=== PATIENT | female | born 1980 | race Caucasian/White ===

== ENCOUNTER 2020-01-10 23:49 | Emergency (ER) | payer MEDICAID ==
[~2020-01-10] VITALS: Ht 154.9 cm; Wt 69.1 kg
[2020-01-11] MEDS ORDERED: diphenhydrAMINE 50 mg/ml inj IV ONE (00:25)
[2020-01-11] MEDS ORDERED: metoclopramide 5 mg/ml inj IV ONE (00:25)
[2020-01-11] MEDS ORDERED: glycopyrrolate 0.2mg/ml inj IV ONE (00:25)
[2020-01-11] MEDS ORDERED: normal saline 1000ML IV soln IVB ONE ×2 (00:25)
[2020-01-11 00:45] LABS: URINE HCG NEGATIVE (NEG)
[2020-01-11 00:58] LABS: ALANINE AMINOTRANSFERASE 43 U/L (12-78); ALBUMIN 4.2 G/DL (3.4-5.0); ALBUMIN/GLOBULIN RATIO 1.1 (1.1-1.5); ALKALINE PHOSPHATASE 74 IU/L (46-116); ANION GAP 7 (8-16); ASPARTATE AMINO TRANSFERASE 27 U/L (10-37); BILIRUBIN,TOTAL 0.2 MG/DL (0.1-1.0); BLOOD UREA NITROGEN 15 MG/DL (7-18); CALCIUM 9.8 MG/DL (8.5-10.1); CHLORIDE 105 MMOL/L (99-107); CREATININE 0.88 MG/DL (0.40-0.90); GLUCOSE 116 MG/DL (70-104); LIPASE 151 U/L (73-393); POTASSIUM 3.7 MMOL/L (3.5-5.1); SODIUM 140 MMOL/L (135-145); TOTAL CARBON DIOXIDE 28.3 MMOL/L (24-32); TOTAL PROTEIN 8.1 G/DL (6.4-8.2); eGFR 71 ML/MIN
[2020-01-11 01:23] LABS: CLARITY,URINE SLIGHTLY CLOUDY (Clear); COLOR,URINE YELLOW (Yellow); GLUCOSE, URINE NEGATIVE (Neg); KETONES,URINE NEGATIVE (Neg); LEUKOCYTE ESTERASE ,URINE NEGATIVE (Neg); NITRITES, URINE NEGATIVE (Neg); OCCULT BLOOD,URINE LARGE (Neg); PROTEIN,URINE NEGATIVE (Neg); UROBILINOGEN,URINE 0.2 E.U/dL (0.2-1.0)
[2020-01-11 01:24] LABS: BASOPHILS # (AUTO) 0.1 X10'3 (0-0.2); BASOPHILS % (AUTO) 0.4 % (0-1); EOSINOPHILS # (AUTO) 0.1 X10'3 (0-0.9); EOSINOPHILS % (AUTO) 0.5 % (0-6); HEMATOCRIT 38.8 % (35.0-45.0); HEMOGLOBIN 13.3 g/dl (12.0-16.0); LYMPHOCYTES # (AUTO) 1.2 X10'3 (1.1-4.8); LYMPHOCYTES % (AUTO) 8.2 % (21-51); MEAN CORPUSCULAR HEMOGLOBIN 28.5 PG (27.0-31.0); MEAN CORPUSCULAR HGB CONC 34.2 g/dL (33.0-36.5); MEAN CORPUSCULAR VOLUME 83.4 FL (78-98); MONOCYTES # (AUTO) 0.8 X10'3 (0-0.9); MONOCYTES % (AUTO) 5.4 % (2-12); NEUTROPHILS # (AUTO) 12.7 X10'3 (1.8-7.7); NEUTROPHILS % (AUTO) 85.5 % (42-75); PLATELET COUNT 230 X10'3 (140-440); RED BLOOD COUNT 4.65 X10'6 (4.20-5.60); RED CELL DISTRIBUTION WIDTH 13.4 % (11.5-14.5); WHITE BLOOD COUNT 14.8 X10'3 (4.5-11.0)
[2020-01-11 01:27] LABS: UA COLLECTION TYPE CLN CATCH MIDSTREAM
[2020-01-11 01:37] LABS: BACTERIA,URINE FEW /HPF (Neg); MUCUS STRANDS MANY /LPF (Neg); SQUAMOUS EPITHELIAL CELL,UR MANY /LPF (FEW); WBC,URINE NONE SEEN /HPF (0-4)
--- NOTE | 2020-01-11 01:39 | NUR ---
Patient up to the bathroom w/o problem, reports more nausea after medication given. I will advised the MD
[2020-01-11] MEDS ORDERED: BACDS PO (02:03)
[2020-01-11] MEDS ORDERED: ONDA4TAB12 PO (02:03)
[2020-01-11] MEDS ORDERED: ondansetron/PF 4mg/2ml inj IV ONE (02:05)
[2020-01-11 02:19] VITALS: BP 122/80
== END 2020-01-11 02:33 | disposition home or self-care (01) ==
LOC: ER 23:50
DX: R11.2 Nausea with vomiting, unspecified (principal); R19.7 Diarrhea, unspecified; K92.1 Melena; F41.9 Anxiety disorder, unspecified; Z90.710 Acquired absence of both cervix and uterus; Z88.0 Allergy status to penicillin; Z79.899 Other long term (current) drug therapy
CPT/HCPCS: 36415; 80053; 81001; 81025; 83690; 85025; 96361; 96374; 96375; 99284; J1200; J2405; J2765; J7030; J3490